=== PATIENT | male | born 1965 | race Caucasian/White ===

== ENCOUNTER 2022-12-03 10:17 | Emergency (ER) | payer OTHER, SELFPAY ==
[2022-12-03] VITALS (14 sets, daily range): BP systolic 102–157; BP diastolic 63–92; PULSE 60–88; RESP 20; TEMP 36.6; O2SAT 96–99; BMI 24.3
--- NOTE | 2022-12-03 10:41 | XR_ITS ---
FINAL REPORT CLINICAL HISTORY: fall from 12 feet, pain, swelling COMPARISON: None FINDINGS: LEFT ANKLE: Three views of the left ankle were obtained. There is a nondisplaced fracture of the base of the medial malleolus with fracture line extending into the tibiotalar joint. There is a calcification adjacent to the lateral malleolus that may represent a remote fracture. There is a comminuted fracture of the body of the calcaneus with impaction. Severe soft tissue swelling is identified in the left ankle. IMPRESSION: Nondisplaced fracture base of the medial malleolus as described. Comminuted fracture of the calcaneus with impaction. Reviewed, Interpreted and Dictated by Henrik Kang III, MD Transcribed by Tg Lundberg Authenticated and [facility]
--- NOTE | 2022-12-03 10:41 | CT_ITS ---
FINAL REPORT CLINICAL HISTORY: fall from 12 feet COMPARISON: None FINDINGS: Axial CT images of the cervical spine were obtained without contrast. Sagittal and coronal reformatted images were also obtained. This study was performed with techniques to keep radiation doses as low as reasonably achievable (ALARA). Individualized dose reduction techniques using automated exposure control or adjustment of mA and/or kV according to the patient's size were employed. There is no evidence of fracture or dislocation. The bony alignment is normal. There is mild and moderate degenerative change with multilevel facet osteoarthropathy and multilevel neural foraminal narrowing. There is mild central canal stenosis at the C5-6 level. Carotid calcifications are noted in the soft tissues of the neck. There is anterior subluxation of the left mandibular condyle, a finding of uncertain chronicity, however not associated with soft tissue swelling. Limited images of the upper thorax are unremarkable. IMPRESSION: No fracture or acute bony abnormality identified. Mild to moderate degenerative change as described. Anterior subluxation left mandibular condyle, a finding of uncertain chronicity but not associated with soft tissue swelling. Reviewed, Interpreted and Dictated by Henrik Kang III, MD Transcribed by Tg Lundberg Authenticated and [facility]
--- NOTE | 2022-12-03 10:41 | XR_ITS ---
FINAL REPORT CLINICAL HISTORY: fall from 12 feet, pain, swelling COMPARISON: None FINDINGS: LEFT FOOT: Three views of the left foot were obtained. There is a nondisplaced fracture of the base of the medial malleolus with fracture line extending into the tibiotalar joint. There is a calcification adjacent to the lateral malleolus. There is a comminuted fracture of the calcaneal body with impaction. Diffuse soft tissue swelling is noted. IMPRESSION: Nondisplaced fracture base of the medial malleolus as described. Comminuted fracture of the calcaneal body with impaction. Reviewed, Interpreted and Dictated by Henrik Kang III, MD Transcribed by Tg Lundberg Authenticated and . [facility]
--- NOTE | 2022-12-03 10:41 | XR_ITS ---
FINAL REPORT CLINICAL HISTORY: fall from 12 feet COMPARISON: None FINDINGS: SINGLE VIEW CHEST The heart size is normal. The mediastinum is within normal limits. No acute pulmonary abnormality is identified. There is no evidence of pneumothorax. The bony thorax is intact. IMPRESSION: No acute cardiopulmonary process. Reviewed, Interpreted and Dictated by Henrik Kang III, MD Transcribed by Tg Lundberg Authenticated and [facility]
--- NOTE | 2022-12-03 10:41 | XR_ITS ---
FINAL REPORT CLINICAL HISTORY: fall from 12 feet, pain, swelling COMPARISON: None FINDINGS: There is a fracture of the base of the medial malleolus with fracture line extending into the tibiotalar joint. There is a comminuted fracture of the body of the calcaneus with impaction. There is calcification adjacent to the lateral malleolus, most likely remote trauma. Diffuse soft tissue swelling is present in the ankle. IMPRESSION: Fracture base of the medial malleolus with a fracture line extending into the tibiotalar joint. Comminuted fracture of the body of the calcaneus once again seen. No other bony abnormality identified in the tibia or fibula. Reviewed, Interpreted and Dictated by Henrik Kang III, MD Transcribed by Tg Lundberg Authenticated and [facility]
--- NOTE | 2022-12-03 10:41 | CT_ITS ---
FINAL REPORT CLINICAL HISTORY: fall from 12 feet COMPARISON: None FINDINGS: Thin section axial CT images of the chest were obtained with contrast. 3D reformatted images were also obtained. This study was performed with techniques to keep radiation doses as low as reasonably achievable (ALARA). Individualized dose reduction techniques using automated exposure control or adjustment of mA and/or kV according to the patient's size were employed. There is no evidence of pulmonary embolism. There is a 4.3 cm ascending aortic aneurysm without evidence of a dissection. There is no evidence of mediastinal or hilar mass or adenopathy. There is a 13 mm spiculated nodule in the left lower lobe. Recommend PET CT for further evaluation. No localized inflammatory process is seen within the lungs. Limited images of the upper abdomen are unremarkable. IMPRESSION: No evidence of pulmonary embolism. 4.3 cm ascending aortic aneurysm without evidence of dissection. 13 mm spiculated nodule in the left lower lobe, recommend PET CT for further evaluation. Reviewed, Interpreted and Dictated by Henrik Kang III, MD Transcribed by gT Lundberg Authenticated and . [facility]
--- NOTE | 2022-12-03 10:41 | XR_ITS ---
FINAL REPORT CLINICAL HISTORY: fall from 12 feet, pain, swelling COMPARISON: None FINDINGS: LEFT KNEE: Three views of the left knee were obtained. There is no acute fracture or dislocation. Visualized joint spaces are normally aligned. There is no joint effusion. Soft tissues are unremarkable. Vascular calcifications are identified. IMPRESSION: No acute bony abnormality. Reviewed, Interpreted and Dictated by Henrik Kang III, MD Transcribed by Tg Lundberg Authenticated and [facility]
--- NOTE | 2022-12-03 10:41 | CT_ITS ---
FINAL REPORT TECHNIQUE: Pre-and postcontrast images of the abdomen were performed by computed tomography. Extensive 3-D reconstruction images were performed. A CTA was performed. This study was performed with techniques to keep radiation doses as low as reasonably achievable (ALARA). Individualized dose reduction techniques using automated exposure control or adjustment of mA and/or kV according to the patient''s size were employed. CLINICAL HISTORY: fall from 12 feet COMPARISON: None FINDINGS: ABDOMEN: The lung bases are clear. Precontrast images demonstrate no evidence of nephrolithiasis. No adrenal masses are identified. The spleen and pancreas are unremarkable. There is mild fatty infiltration of the liver. CTA: The abdominal aorta is proper caliber. The SMA, celiac axis, and JAMEY are patent. There is no significant stenosis or calcification. The renal arteries are patent bilaterally. The portions of the iliac arteries visualized are unremarkable. IMPRESSION: No evidence of abdominal intravascular abnormality. Mild fatty infiltration of the liver. Reviewed, Interpreted and Dictated by Henrik Kang III, MD Transcribed by Tg Lundberg Authenticated and [facility]
--- NOTE | 2022-12-03 10:41 | CT_ITS ---
FINAL REPORT CLINICAL HISTORY: fall from 12 feet COMPARISON: None FINDINGS: Axial images of the head were obtained without contrast. Coronal and sagittal reformatted images were also obtained. This study was performed with techniques to keep radiation doses as low as reasonably achievable (ALARA). Individualized dose reduction techniques using automated exposure control or adjustment of mA and/or kV according to the patient's size were employed. There is generalized age appropriate atrophy. There is no evidence of intracranial hemorrhage or mass. The ventricular size is within normal limits. There is no evidence of shift of the midline structures. No skull abnormality is seen on the bone window images. There is a small right maxillary retention cyst or polyp present. There is anterior subluxation of the left mandibular condyle, of uncertain chronicity. No adjacent soft tissue swelling is identified. IMPRESSION: No acute intracranial abnormality. Anterior subluxation of the left mandibular condyle, of uncertain chronicity, however no adjacent soft tissue swelling is identified. Reviewed, Interpreted and Dictated by Henrik Kang III, MD Transcribed by Tg Lundberg Authenticated and [facility]
--- NOTE | 2022-12-03 10:41 | CT_ITS ---
FINAL REPORT TECHNIQUE: Thin section axial CT images with coronal and sagittal reformats were performed of the left ankle. This study was performed with techniques to keep radiation doses as low as reasonably achievable (ALARA). Individualized dose reduction techniques using automated exposure control or adjustment of mA and/or kV according to the patient''s size were employed. CLINICAL HISTORY: fall from 12 feet, left ankle pain COMPARISON: none FINDINGS: Fracture at the base of the medial malleolus. Fracture line extends to the tibial talar joint. There is a separate fracture line involving the anterior distal tibia. There is a chronic calcification inferior to the lateral malleolus. Nondisplaced fracture of the inferior aspect of the lateral malleolus of uncertain age. Comminuted fracture of the calcaneus. Fracture line extends to the posterior facet. There is impaction of the fracture fragment at the level of the posterior facet. Fracture fragments extend through both anterior processes. Calcaneocuboid joint is intact. The mid facet is intact. There is a fracture at the base of the sustentaculum. IMPRESSION: Comminuted fracture calcaneus as described. Fracture of the medial malleolus as described. Of the lateral malleolus of uncertain age. Reviewed, Interpreted and Dictated by Henrik Kang III, MD Transcribed by Annamarie Owen Authenticated and [facility]
--- NOTE | 2022-12-03 10:41 | XR_ITS ---
FINAL REPORT CLINICAL HISTORY: fall from 12 feet COMPARISON: None FINDINGS: SINGLE VIEW PELVIS: A single view of the pelvis was obtained. There is no acute fracture or dislocation. Vizualized joint spaces are normally aligned. Soft tissues are unremarkable. IMPRESSION: No acute bony abnormality. Reviewed, Interpreted and Dictated by Henrik Kang III, MD Transcribed by Tg Lundberg Authenticated and [facility]
--- NOTE | 2022-12-03 10:43 | CT_ITS ---
FINAL REPORT TECHNIQUE: Thin section axial CT with IV contrast supplemented with multiplanar reconstruction under CT angiogram protocol. This study was performed with techniques to keep radiation doses as low as reasonably achievable (ALARA). Individualized dose reduction techniques using automated exposure control or adjustment of mA and/or kV according to the patient''s size were employed. NASCET criteria was utilized during interpretation. CLINICAL HISTORY: fall from 12 feet, pain COMPARISON: None FINDINGS: Aortic arch: Arch shows no significant narrowing. Great vessel origins are widely patent. Right carotid: No significant stenosis is seen of the cervical common or internal carotid artery. Left carotid: No significant stenosis is seen of the cervical common or internal carotid artery. Vertebral: Left vertebral artery is dominant. No significant stenosis is present. IMPRESSION: No major vascular abnormality seen in the neck. The left vertebral artery is dominant. Reviewed, Interpreted and Dictated by Henrik Kang III, MD Transcribed by Tg Lundberg Authenticated and [facility]
--- NOTE | 2022-12-03 10:43 | CT_ITS ---
FINAL REPORT TECHNIQUE: Thin section axial CT with IV contrast supplemented with multiplanar reconstruction under CT angiogram protocol. 3-D reconstructions were performed. This study was performed with techniques to keep radiation doses as low as reasonably achievable (ALARA). Individualized dose reduction techniques using automated exposure control or adjustment of mA and/or kV according to the patient's size were employed. CLINICAL HISTORY: fall from 12 feet, pain COMPARISON: None FINDINGS: The distal vertebral, basilar and distal internal carotid arteries have an unremarkable appearance. No aneurysm is seen. Major intracranial vessels are patent without significant stenosis. IMPRESSION: No major vascular occlusion or other abnormality is identified. Reviewed, Interpreted and Dictated by Henrik Kang III, MD Transcribed by Tg Lundberg Authenticated and . [facility]
--- NOTE | 2022-12-03 10:43 | CT_ITS ---
FINAL REPORT CLINICAL HISTORY: fall from 12 feet, pain COMPARISON: None FINDINGS: Axial CT images of the thoracic spine were obtained without contrast. Sagittal and coronal reformatted images were also obtained. This study was performed with techniques to keep radiation doses as low as reasonably achievable (ALARA). Individualized dose reduction techniques using automated exposure control or adjustment of mA and/or kV according to the patient's size were employed. There is a moderate T4 compression fracture involving the superior endplate, which appears chronic. There is a mild T11 compression fracture, also likely chronic. No acute fractures are identified. Moderate emphysema is noted. No pneumothorax is present. There are multilevel degenerative changes in the thoracic spine. There is a 4.3 cm ascending thoracic aorta aneurysm. There is a 13 mm spiculated nodule present in the left lower lobe of uncertain chronicity. Would recommend PET CT for further evaluation. The vertebral alignment is normal. IMPRESSION: T4 moderate and T11 mild compression fractures, both appear chronic. Moderate changes of emphysema without pneumothorax. 4.3 cm ascending thoracic aortic aneurysm. There is a 13 mm spiculated nodule in the left lower lobe, worrisome for carcinoma. Would recommend PET CT for further evaluation. Reviewed, Interpreted and Dictated by Henrik Kang III, MD Transcribed by Tg Lundberg Authenticated and [facility]
--- NOTE | 2022-12-03 10:43 | CT_ITS ---
FINAL REPORT TECHNIQUE: Axial imaging of the lumbar spine was obtained without contrast. Sagittal and coronal reformatted images were also obtained and reviewed. This study was performed with techniques to keep radiation doses as low as reasonably achievable (ALARA). Individualized dose reduction techniques using automated exposure control or adjustment of mA and/or kV according to the patient's size were employed. CLINICAL HISTORY: fall from 12 feet, pain COMPARISON: None FINDINGS: There is no acute fracture. The vertebral alignment is normal. There are moderate to severe degenerative changes in the lumbar spine. There are multiple lytic areas in the lumbar vertebra, some likely related to prominent Schmorl's nodes. Others are of uncertain significance, they could be secondary to large unusual Schmorl's nodes, but bony neoplastic involvement is not excluded. IMPRESSION: Moderate to severe degenerative changes in the lumbar spine. Multiple lytic areas in the lumbar vertebra, some likely related to prominent Schmorl's nodes. Others are of uncertain significance, and could be secondary to large unusual Schmorl's nodes although neoplastic bony involvement is not excluded. Correlation with PET CT would be helpful for further evaluation as indicated. Reviewed, Interpreted and Dictated by Henrik Kang III, MD Transcribed by Tg Lundberg Authenticated and [facility]
--- NOTE | 2022-12-03 11:04 | PC.NURSE ---
xray at bs
[2022-12-03 11:39] LABS: Basophils % 0.3 % (0.1-2.0); Eosinophils # 0.1 K/mm3 (0.0-0.4); Eosinophils % 0.9 % (0.1-12.0); Hematocrit 45.9 % (42.0-52.0); Hemoglobin 15.7 g/dL (14.1-18.0); Lymphocytes # 1.9 K/mm3 (0.7-4.5); Lymphocytes % 23.3 % (10-50); Mean Corpuscular HGB Conc 34.1 g/dL (31.8-35.4); Mean Corpuscular Hemoglobin 33.1 pg (27.0-31.2); Mean Corpuscular Volume 97.2 fl (80-94); Mean Platelet Volume 8.3 fl (7.4-10.4); Monocytes # 0.9 K/mm3 (0.1-1.0); Monocytes % 10.9 % (1.7-9.3); Neutrophils # 5.3 K/mm3 (1.8-7.8); Neutrophils % 64.5 % (37.0-80.0); Platelet Count 227 K/mm3 (142-424); Red Blood Count 4.73 M/mm3 (4.60-6.20); Red Cell Distribution Width 13.1 % (11.5-17.5); White Blood Count 8.2 K/mm3 (4.8-10.8)
--- NOTE | 2022-12-03 11:46 | HMH.EDGENADL ---
Discharge Plan Disposition Chief Complaint: PAIN Referrals Follow up/Referrals: Provider,Referral, MD [Primary Care Provider] - See instructions Activity Restrictions/Add. Instructions Additional Instructions/Restrictions: Please proceed directly to the [facility] emergency department. Provide them with your paperwork and disc. ?[address], [place] [address] Clinical Impressions Clinical Impression: Calcaneus fracture, left, Ankle fracture, left, Fall from height of greater than 3 feet, Lytic lesion of bone on x-ray, Incidental lung nodule, Aneurysm of ascending aorta Stand Alone Forms Stand Alone Forms: Transfer Record - ED Discharge ED Provider: Jelena Banks General Adult HPI General Chief complaint: PAIN Stated complaint: AO fall 12/02, left ankle pain Time Seen by Provider: 12/03/22 10:22 Mode of Arrival: Ambulatory Source of Information: Patient Limitations: No Limitations Description of Symptoms (Recalled from ER Triage Doc. by RN): pt to ed c/o left ankle pain. pt states he fell from a 12ft ladder yesterday and fell onto his feet. edema, redness and hematoma noted to the area. pt denies hitting his head. History of Present Illness HPI narrative: This patient is a 56-year-old male who denies significant past medical history presented to the emergency department for evaluation with concern for left ankle pain. Patient reports that he fell from a 12 foot ladder yesterday afternoon and landed on his left side. He states that most of the impact was onto his left foot/ankle. He did not hit his head or lose consciousness. He states he has not been able to bear weight on his left ankle since the incident with significant bruising and swelling. He denies any headache, vision changes, neck pain, back pain, chest pain, abdominal pain, or other concerns. He states that he was well prior to the fall. He did not take any blood thinners. Related Data Allergies Allergy/AdvReac Type Severity Reaction Status Date / Time No Known Allergies Allergy Verified 12/03/22 10:57 [facility] Disclaimer: The information contained in this section may have been updated after the patient was seen, as this information can be updated by other users. Social History (Updated 12/03/22 @ 16:21 by Jelena Banks DO) Smoking Status: Never smoker alcohol intake: never current occupational status: employed Travel in the last 8 weeks: None ROS Obtained: Yes All systems reviewed & no additional complaints except as documented Physical Exam General General appearance: alert and in no apparent distress Head Head exam: atraumatic, normocephalic and normal inspection Eye Eye exam: Present normal appearance, PERRL and EOMI ENT ENT exam: Present normal exam, normal oropharynx and mucous membranes moist Neck Neck exam: Present normal inspection, full ROM and trachea midline; Absent tenderness Chest Chest inspection: Present normal inspection and symmetric chest wall rise; Absent tenderness Respiratory Respiratory exam: Present normal lung sounds bilaterally; Absent respiratory distress, wheezes, stridor or accessory muscle use Cardiovascular Cardiovascular exam: Present regular rate and normal rhythm Abdominal Exam Abdominal exam: Present soft; Absent distention, tenderness or guarding Extremities Exam Extremities exam: Present tenderness, edema, joint swelling and other Expanded Lower Extremity Exam Left: Hip/Pelvis exam: Present normal inspection Upper leg exam: Present normal inspection Knee exam: Present normal inspection Lower leg exam: Present tenderness, swelling, ecchymosis and deformity Ankle exam: Present tenderness, swelling, ecchymosis and deformity Ankle image: 1. Large blood blister with underlying ecchymosis 2. Blistering Neurovascular/Tendon exam: Present normal capillary refill and normal fine/light touch; Absent motor deficit, sensory deficit or extre
[2022-12-03 11:50] LABS: Alanine Aminotransferase 50 U/L (12-78); Albumin Level 4.3 g/dl (3.5-5.0); Albumin/Globulin Ratio 1.2 (1.1-1.8); Alkaline Phosphatase 85 U/L (38-126); Anion Gap 14.2 mEq/L (5-15); Aspartate Amino Transferase 67 U/L (17-59); Bilirubin,Total 0.5 mg/dl (0.2-1.3); Blood Urea Nitrogen 5 mg/dl (9-20); Calcium 8.9 mg/dl (8.4-10.2); Carbon Dioxide 24 mmol/L (22.0-30.0); Chloride 95 mmol/L (98-107); Creatinine Clearance Estimated 139 mL/min (50-200); Estimated Glomerular Filt Rate 139 ml/min (>60); GFR (African American) 168 ML/MIN (>60); Globulin 3.6 g/dL (1.3-3.2); Glucose 104 mg/dl (74-100); Potassium 4.2 mmoL/L (3.5-5.1); Sodium 129 mmol/L (136-145); Total Protein,Serum 7.9 g/dl (6.3-8.2)
--- NOTE | 2022-12-03 11:54 | PC.NURSE ---
Pt moved over to room 9. Notified
--- NOTE | 2022-12-03 12:08 | XR_ITS ---
FINAL REPORT CLINICAL HISTORY: fall from 12 ft, md janessa requested, pt denies pain right foot COMPARISON: None FINDINGS: RIGHT FOOT: Three views of the right foot were obtained. There is no acute fracture or dislocation. Chronic calcification inferior to the lateral malleolus. The joint spaces are intact. There is no soft tissue abnormality. IMPRESSION: No acute bony abnormality. Reviewed, Interpreted and Dictated by Henrik Kang III, MD Transcribed by Annamarie Owen Authenticated and [facility]
--- NOTE | 2022-12-03 12:08 | XR_ITS ---
FINAL REPORT CLINICAL HISTORY: fall from 12 ft, md requested, pt denies pain right ankle COMPARISON: None FINDINGS: RIGHT ANKLE: Three views of the right ankle were obtained. There is no acute fracture or dislocation. Chronic calcification inferior to the lateral malleolus. The joint spaces and mortise are intact. There is no soft tissue abnormality. IMPRESSION: No acute bony abnormality. Reviewed, Interpreted and Dictated by Henrik Kang III, MD Transcribed by Annamarie Owen Authenticated and [facility]
--- NOTE | 2022-12-03 12:23 | PC.NURSE ---
urinal given to pt
--- NOTE | 2022-12-03 12:57 | PC.NURSE ---
paged ortho Dr Roger for ER Doc to speak with about this pt
--- NOTE | 2022-12-03 13:56 | PC.NURSE ---
called [facility] for ortho to speak with ER Doctor about this pt. also javier shared xrays to [facility]
--- NOTE | 2022-12-03 14:57 | PC.NURSE ---
called [facility] back about speaking with Ortho. They advised thatwe were still on the list and that they were just really busy at the time But would call us back soon.
--- NOTE | 2022-12-03 15:26 | PC.NURSE ---
[facility] called and advised they could not take this pt.
--- NOTE | 2022-12-03 15:29 | PC.NURSE ---
contacted [facility] per ER Doctor about this pt due to [facility] not being able to take pt.
--- NOTE | 2022-12-03 15:51 | PC.NURSE ---
called [facility] also to see about speaking with Ortho about this pt.
--- NOTE | 2022-12-03 16:14 | PC.NURSE ---
called [facility] not on staff
--- NOTE | 2022-12-03 16:15 | PC.NURSE ---
called [facility] and they are speaking with Dr Banks right now.
--- NOTE | 2022-12-03 16:26 | PC.NURSE ---
[facility] accepted pt per ER Doctor.
--- NOTE | 2022-12-03 16:42 | PC.NURSE ---
report called to reina at ER
== END 2022-12-03 16:50 | disposition other institution (70) ==
PROVIDERS: Emergency Provider Emergency Medicine
DX: S92.002A Unspecified fracture of left calcaneus, initial encounter for closed fracture (principal); S82.55XA Nondisplaced fracture of medial malleolus of left tibia, initial encounter for closed fracture; W11.XXXA Fall on and from ladder, initial encounter; F17.200 Nicotine dependence, unspecified, uncomplicated
CPT/HCPCS: 70450; 70496; 70498; 71045; 71275; 72125; 72128; 72131; 72170; 73562; 73590; 73610; 73630; 73700; 74174; 80053; 85025; 96374; 96375; 96376; 99285; J2405; Q9967

== ENCOUNTER → 2023-02-12 13:35 | Outpatient (CLI) | payer OTHER, SELFPAY ==
--- NOTE | 2023-02-12 13:38 | CA_ITS ---
FINAL REPORT TECHNIQUE: Color Doppler, duplex Doppler and najera scale sonography of the bilateral neck vasculature was performed. Velocities were measured in the carotid arteries. Stenosis evaluation based on velocity criteria. CLINICAL HISTORY: CALCIFICATIONS SEEN ON X-RAY,SMOKER COMPARISON: None FINDINGS: The peak systolic velocity of the right common carotid artery is 73 cm/sec and internal carotid artery 88 cm/sec. The diastolic velocity in the internal carotid artery is 33 cm/sec. The ICA/CCA ratio is 1.4. Visually, a small amount of plaque is seen. These findings are consistent with less than 50% stenosis. The external carotid artery is patent. The right vertebral artery is patent with antegrade flow. The peak systolic velocity of the left common carotid artery is 74 cm/sec and internal carotid artery 60 cm/sec. The diastolic velocity in the internal carotid artery is 25 cm/sec. The ICA/CCA ratio is 1.0. Visually, a small amount of plaque is seen. These findings are consistent with less than 50% stenosis. The external carotid artery is patent. The left vertebral artery is patent with antegrade flow. IMPRESSION: No evidence of significant carotid stenosis. Bilateral patent vertebral arteries. If indicated, CTA or MRA could further evaluate. Reviewed, Interpreted and Dictated by Henrik Kang III, MD Transcribed by Tg Lundberg Authenticated and [facility]
--- NOTE | 2023-02-12 13:38 | CA_ITS ---
APPROVED REPORT EXAM: Comprehensive 2D, Doppler, and color-flow Echocardiogram Sausage Grinder: Julee Jane, RT(R) Ht: 5 ft 10 in Wt: 163lbs BSA: 1.91 BP: 150/98 mmHg Indications: 4.3 cm AAA seen on CT, smoker 2D Dimensions LVOT 1.91 cm (M/F) 1.5-2.5 LVEF (Maurer's) 62.60 % M: 52 - 72 LV Volume 106.30 mL M: 62 - 150 LV Volume Index 55.36 mL/m2 M: 34 - 74 LA Volume 19.00 mL LA Volume Index 9.90 mL/m2 (M/F) 16-34 M-Mode Dimensions RVDd 2.55 cm (0.9-2.6) LVDd 4.39 cm (3.5-5.7) LVDs 3.82 cm (3.5-5.7) IVSd 1.27 cm (0.6-1.1) PWd 0.84 cm (0.6-1.1) EF (Teich) 28.10% FS 13.00% EDV (Teich) 87.20 mL ESV (Teich) 62.70 mL LV Diastology E Decel Time 273.00 (160-240 msec) E/A Ratio 1.1 MED E' 8.10 (< 7 cm/sec) E'/MED E' Ratio 10.33 (>14) LAT E' 10.80 (<10 cm/sec) E/LAT E' Ratio 7.75 (>14) Aortic Valve LVOT Max 107.00 (70-110 cm/s) LVOT VTI 23.95 cm AoV Peak Darnell. 192.00 (50-130 cm/s) AO Peak GR. 14.80 mmHg AO Mean GR. 7.30 (<5 mmHg) AO VTI 38.10 (18-25 cm) EUN (VTI) 1.80 (2.5-4.5 cm2) Mitral Valve MV E Max Darnell. 84.00 (40-130 cm/s) MV A Velocity 74.00 (40-130 cm/s) E/A Ratio 1.13 MV Decel. Time 273.00 (160-240 ms) MV PHT 80.00 ms Left Ventricle The left ventricle is normal size. The left ventricular systolic function is normal. The left ventricular ejection fraction is within the normal range. There is increased LV wall thickness. There is normal LV segmental wall motion. The left ventricular diastolic function is normal. LVEF is 60%. Right Ventricle The right ventricle is normal size. The right ventricular systolic function is normal. There is increased RV wall thickness. Atria The left atrium size is normal. There is no Doppler evidence of interatrial shunt. Aortic Valve The aortic valve is moderately thickened. The aortic valve is possibly bicuspid. Mild aortic stenosis. Aortic valve area (EUN) by 2D planimetry is 1.9 cm2 (EUN by continuity equation is 1.5 cm2). Peak velocity is 2 m/s. Mean AV gradient is 8 mmHg. Max AV gradient is 16 mmHg. SVi=37 ml/m2. DI=0.56. No aortic regurgitation is present. Mitral Valve The mitral valve is normal in structure. No evidence of mitral valve stenosis. Trace mitral regurgitation. Tricuspid Valve The tricuspid valve leaflets are thin and pliable. Trace tricuspid regurgitation. There is insufficient TR jet to estimate RVSP. Pulmonic Valve The pulmonary valve is normal in structure. Trace pulmonic regurgitation. Great Vessels The aortic root is normal in size. The ascending aorta is normal in size. IVC is normal in size and collapses >50% with inspiration. Pericardium Small anterior pericardial effusion is present. The largest pocket measures approximately 0.3 cm in diastole. There are no echo indications of tamponade. Other Information Study Quality: Fair Conclusion Normal biventricular systolic function. Moderately thickened aortic valve, possibly bicuspid (aortic valve area (ENU) by 2D planimetry is 1.9 cm2 (EUN by continuity equation is 1.5 cm2). Peak velocity is 2 m/s. Mean AV gradient is 8 mmHg. Max AV gradient is 16 mmHg. SVi=37 ml/m2. DI=0.56). Mild aortic stenosis. Small anterior pericardial effusion, no echo indications of tamponade. Electronically signed by : Rosalba Ng MD 02/14/2023 23:32:16
== END ==
PROVIDERS: PCP Nurse Practitioner Family; Visit Provider Nurse Practitioner Family
DX: I65.23 Occlusion and stenosis of bilateral carotid arteries (principal); I71.21 Aneurysm of the ascending aorta, without rupture
CPT/HCPCS: 93306; 93880